=== PATIENT | female | born 1980 | race Caucasian/White ===

== ENCOUNTER → 2022-06-21 | Outpatient (CLI) | payer BC, OTHER ==
[~2022-06-21] MED LIST: MOTRIN 600600 MG/TAB PO; PERCOCET 325 MG1 TA2 PO; PHENERGAN 25 TA25 MG PO; PRENATAL VITAMI1 TA5 PO
== END ==
LOC: COL.RAD 06-20 09:45
DX: M19.011 Primary osteoarthritis, right shoulder (principal); S46.911A Strain of unspecified muscle, fascia and tendon at shoulder and upper arm level, right arm, initial encounter; M77.8 Other enthesopathies, not elsewhere classified; M24.111 Other articular cartilage disorders, right shoulder
CPT/HCPCS: A9575; Q9967